=== PATIENT | male | born 1970 | race American Indian/Alaskan Native ===

== ENCOUNTER 2019-02-08 23:13 | Emergency (ER) | payer MEDICAID ==
[~2019-02-08] VITALS: Ht 190.5 cm; Wt 95.5 kg
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
[2019-02-08] MEDS ORDERED: TETanus/Pertussis (Acell)/Diphther VAC/PF (Tdap-Adult) 0.5ml syringe IMVAC ONE (23:45)
[2019-02-08] MEDS ORDERED: LIDOcaine 1% w/epiNEPHrine 1:200,000 30ml vial IM ONE (23:45)
[2019-02-08] MEDS ORDERED: LIDOcaine 1% w/EPI 1:200,000 injection 10mL vial IM ONE (23:45)
[2019-02-09 00:36] VITALS: BP 137/83
== END 2019-02-09 00:38 | disposition home or self-care (01) ==
LOC: ER 23:15
DX: S01.81XA Laceration without foreign body of other part of head, initial encounter (principal); R11.10 Vomiting, unspecified; Y08.89XA Assault by other specified means, initial encounter; Y93.72 Activity, wrestling; Y92.89 Other specified places as the place of occurrence of the external cause; Y99.8 Other external cause status
CPT/HCPCS: 12013; 90471; 99283